=== PATIENT | female | born 1960 | race Two or more races ===

== ENCOUNTER 2024-06-30 21:06 | Inpatient (IN) | payer MEDICAID, SELFPAY ==
[2024-06-30 21:07] VITALS: BMI 43.4
--- NOTE | 2024-06-30 21:08 | EKG_ITS ---
[facility] Test Date: 2024-06-30 Pat Name: JENNIFER STRATTON Department: Room: - Gender: Female Field Service Rep: : 1960 Requested By: Davonte Caceres Order Number: [id number] Reading MD: Davonte Caceres Measurements Intervals [place] Rate: 72 P: 40 MN: 148 QRS: 116 QRSD: 134 T: 47 QT: 422 QTc: 463 Interpretive Statements SINUS RHYTHM MARKED RIGHT AXIS DEVIATION [QRS AXIS > 100] RIGHT BUNDLE BRANCH BLOCK [120+ ms QRS DURATION, UPRIGHT V1, 40+ ms S IN I/aVL/V4/V5/V6] No previous ECG available for comparison /store/S0/[id number].pdf
[2024-06-30 21:14] VITALS: BP 163/69; PULSE 79; RESP 18; TEMP 36.6; O2SAT 92
--- NOTE | 2024-06-30 21:36 | XR_ITS ---
Examination: PA chest single view Technique: Upright PA chest single view Exam date and time: June 30, 2024 2147 hrs. Indications: Coughing shortness of breath beginning one week ago. Findings: Significant bilateral perihilar bibasilar pneumonia Normal heart size Impression: Significant bilateral pneumonia
--- NOTE | 2024-06-30 21:37 | PD.EDRME ---
Rapid Medical Screening Exam RME Arrival date/time: 06/30/24 21:06 63F with history of asthma (though she smokes cigarettes) and DM presents to ED with 1 week of worsening cough and SOB. Chief Complaint: Asthma Time Seen by Provider: 06/30/24 21:42 Vital signs: Vital Signs Temperature 97.8 F 06/30/24 21:14 Pulse Rate 79 06/30/24 21:14 Respiratory Rate 18 06/30/24 21:14 Blood Pressure 163/69 H 06/30/24 21:14 Pulse Oximetry (%) 92 L 06/30/24 21:14 Oxygen Delivery Method Room Air 06/30/24 21:14
--- NOTE | 2024-06-30 21:45 | EDNOTE_ITS ---
ED SOB =RME/HPI General Chief Complaint: Asthma Stated Complaint: DIFFICULTY BREATING; HX ASTHMA Time Seen by Provider: 06/30/24 21:42 Arrival date/time: 06/30/24 21:06 RME / HPI RME / HPI Narrative: 06/30/24 21:06 63F with history of asthma (though she smokes cigarettes) and DM presents to ED with 1 week of worsening cough and SOB. This section includes all my notes and documentations, including HPI, PE, and ED course. Omar Pringle MD HPI: 63-year-old female with asthma presents with about a week history of worsening cough, productive cough, purulent sputum, and dyspnea. With subjective fever and chills. No other complaints. ROS: All negative except as documented in HPI. Physical Exam: General: Alert and oriented. Hypoxia noted needing oxygen. Eyes: Conjunctivae and lids clear. ENT: No nasal congestion. Pharynx normal. TM normal bilaterally. Neck: Supple. Heart: RRR. Lungs: Severe respiratory distress. Severely decreased air movement with diffuse wheezing and bibasilar Rales. Abdomen: Soft and nontender. Normal bowel sounds. No distension. No rebound or guarding. Back: No CVA tenderness. Skin: Warm and dry. Neuro: Alert and oriented X 3. I reviewed all diagnostic test results. My interpretation of the EKG is sinus rhythm with nonspecific ST-T changes. My interpretation of the chest x-ray is infiltrates. Blood tests remarkable for negative troponin/D-dimer/BNP. At this point, diagnoses include respiratory failure with hypoxia, pneumonia, and asthma exacerbation. Treatment here included dexamethasone and neb treatments and Zithromax and Rocephin and two Tylenol #3. Significant improvement not noted. I discussed the case with our hospitalist. About the presentation and exam and diagnostics and treatments here. And need of further care in the hospital. Abel barros accept the patient. Omar Pringle MD Related Data Previous Rx's ?Medication ?Instructions ?Recorded gabapentin 300 mg capsule 300 mg PO BID #20 caps 10/07/19 ibuprofen 800 mg tablet 800 mg PO TID #30 tabs 10/07/19 Allergies Allergy/AdvReac Type Severity Reaction Status Date / Time No Known Allergies Allergy Verified 10/07/19 19:52 Course Quality Measures none Orders Category Date Time Status Bedside COVID-19 Antigen Test NOW Care 06/30/24 22:12 Active Bedside COVID-19 Antigen Test NOW Care 07/01/24 00:23 Active Bedside Influenza A&B Antigen Test NOW Care 06/30/24 21:37 Completed COVID-19 Screening Questionnaire NOW Care 07/01/24 00:17 Active Decision to Admit X1 Care 07/01/24 00:17 Active EKG (ED ONLY) *Do not use* NOW Care 06/30/24 21:08 Completed Saline [Insert IV] NOW Care 06/30/24 22:23 Active EKG (ED Only) Stat Exams 06/30/24 21:08 Draft XR chest 1V portable Stat Exams 06/30/24 21:36 Completed BNP [B-Type Natriuretic Peptide] Stat Lab 06/30/24 22:22 Completed Blood Culture (Lab) Stat Lab 06/30/24 22:22 Received CBC Stat Lab 06/30/24 22:22 Completed Comprehensive Metabolic Panel Stat Lab 06/30/24 22:22 Completed D-Dimer Stat Lab 06/30/24 22:22 Completed Lactate (Lactic Acid) Stat Lab 06/30/24 22:22 Completed Magnesium Stat Lab 06/30/24 22:22 Completed Procalcitonin Stat Lab 06/30/24 22:22 Completed RSV [Respiratory Syncytial Virus Ag] Stat Lab 06/30/24 22:12 Ordered Troponin I Stat Lab 06/30/24 22:22 Completed ACETAMINOPHEN w/COD 300-30 [Tylenol w/Cod #3] Med 06/30/24 22:12 Discontinued 2 tab PO X1 ONE Azithromycin Inj [Zithromax Inj] 500 mg Med 06/30/24 22:23 Discontinued Sodium Chloride 0.9% 250 ml [Ns] 250 ml IV X1 Budesonide Rt [Pulmicort Rt [place]] Med 06/30/24 21:36 Discontinued 0.5 mg INH X1 ONE Dexamethasone Inj [Decadron Inj] Med 06/30/24 21:36 Discontinued 10 mg PO X1 ONE Ipratropium [place] Rt [place]ham [Atrovent Rt [place]] Med 06/30/24 21:36 Discontinued 1 mg INH X1 ONE Levalbuterol Rt [Xopenex Rt [place]] Med 06/30/24 21:36 Discontinued 5 mg INH X1 ONE Sodium Chloride Rt [place] 0.9% [NS Rt [place] 0.9%] Med 06/30/24 21:36 Active 3 ml INH PRN PRN cefTRIAXone/D5w 1gm IV premix [Rocephin/D5w 1gm IV Med 06/30/24 22:23 Discontinued premix] 50 ml IV X1 Oxygen Delivery NOW RT 06/30/24 21:36 Active Vital Signs Vital signs: Vital Signs Temperature 97.8 F 06/30/24 21:14 Pulse Rate 79 06/30/24 21:14 Respiratory Rate 18 06/30/24 21:14 Blood Pressure 163/69 H 06/30/24 21:14 Pulse Oximetry (%) 92 L 06/30/24 21:14 Oxygen Delivery Method Room Air 06/30/24 21:14 Shortness of Breath / Dyspnea Patient data External records reviewed:: [facility] previous records Clinical information provided by:: patient and family Social determinants that could affect healthcare access:: none Patient has the following chronic illnesses:: Asthma How is presenting disease/condition affected by chronic disease/condition?: exacerbated by Evaluation data The following diagnostics were reviewed and interpreted by me:: lab results, radiology exam(s) and EKG tracing(s) (My interpretation of the EKG is: Sinus rhythm (72 bpm) with right BBB and nonspecific ST-T changes. Omar Pringle MD) Lab and/or radiology exams considered but not ordered:: None Interpretation Summary: Respiratory failure and pneumonia and asthma exacerbation Medications / Prescriptions Medications or Prescriptions considered but not ordered:: None Medication administrations:: Medication Administration History Sodium Chloride (Sodium Chloride Rt [place] 0.9% 3 Ml Nebu) 3 ml INH PRN PRN PRN Reason: SOLN Stop: 07/30/24 21:35 Last Admin: 06/30/24 22:11 Dose: 3 ml Documented By: EMMA Discontinued Medications Acetaminophen/Codeine Phosphate (Acetaminophen W/Cod 300-30 Tablet) 2 tab PO X1 ONE Stop: 06/30/24 22:13 Last Admin: 06/30/24 22:24 Dose: 2 tab Documented By: AVI Budesonide (Budesonide Rt 0.5 Mg/2 Ml Nebu) 0.5 mg INH X1 ONE Stop: 06/30/24 21:37 Last Admin: 06/30/24 22:11 Dose: 0.5 mg Documented By: EMMA Dexamethasone Sodium Phosphate (Dexamethasone Sod Phos Inj 10 Mg/Ml Vial) 10 mg PO X1 ONE Stop: 06/30/24 21:37 Last Admin: 06/30/24 21:52 Dose: 10 mg Documented By: Azithromycin 500 mg/ Sodium (Chloride) 250 mls @ 250 mls/hr IV X1 ONE Stop: 06/30/24 23:22 Last Admin: 07/01/24 00:18 Dose: 250 mls/hr Documented By: WARREN Ceftriaxone Sodium/Dextrose (Rocephin/D5w 1gm Iv Premix) 50 mls @ 100 mls/hr IV X1 ONE Stop: 06/30/24 22:52 Last Admin: 06/30/24 23:11 Dose: 100 mls/hr Documented By: SWATI Ipratropium [place] (Ipratropium Rt 0.5 Mg/ 2.5 Ml Nebu) 1 mg INH X1 ONE Stop: 06/30/24 21:37 Last Admin: 06/30/24 22:10 Dose: 1 mg Documented By: EMMA Levalbuterol HCl (Levalbuterol Rt 1.25 Mg/0.5 Ml Nebu) 5 mg INH X1 ONE Stop: 06/30/24 21:37 Last Admin: 06/30/24 22:10 Dose: 5 mg Documented By: EMMA Dexamethasone and neb treatments and Rocephin and Zithromax Consultations Consultation(s) initiated? (list below): No Diagnosis Shortness of Breath Differential Diagnosis: acute exacerbation of chronic obstructive airways disease, congestive heart failure, community acquired pneumonia, asthma with exacerbation and pulmonary embolism Most likely diagnosis given after review of the tests above:: Respiratory failure and pneumonia and asthma exacerbation Admission Indicated Admission indicated?: indicated Explain why admission is indicated or not indicated:: Respiratory failure with hypoxia Admission Request Was there a request for admission?: Yes Admission Attestation Admission request attestation: Discussed case with [] from Hospitalist service regarding admission. Discussed patients ED course, exam findings, labs, and radiology results. The Hospitalist [agrees,declines] to accept the patient for admission. Disposition Plan Disposition Plan: Admit Discharge Plan Plan Patient Disposition: Admit Acute Care w/in Hospital Prescriptions/Referrals Prescriptions/Med Rec: No Action ibuprofen 800 mg tablet 800 mg PO TID Qty: 30 0RF gabapentin 300 mg capsule 300 mg PO BID Qty: 20 0RF Referrals: Edmar Espinal MD [Primary Care Provider] - In 1 week Problem List Clinical Impression: Acute respiratory failure with hypoxia, Asthma with acute exacerbation, Pneumonia Patient/Caregiver Discharge Instructions Print Language: Kittitian Stand Alone Forms: Mary Award Info., Patient Portal Info Letter
[2024-06-30] MEDS: DEXAMETHASONE SOD PHOS INJ 10 MG/ML VIAL PO (21:52)
[2024-06-30] MEDS: LEVALBUTEROL RT 1.25 MG/0.5 ML NEBU 5 MG INH (22:10)
[2024-06-30] MEDS: IPRATROPIUM RT 0.5 MG/ 2.5 ML NEBU 1 MG INH (22:10)
[2024-06-30] MEDS: BUDESONIDE RT 0.5 MG/2 ML NEBU INH (22:11)
[2024-06-30] MEDS: SODIUM CHLORIDE RT SOL 0.9% 3 ML NEBU INH (22:11)
[2024-06-30 22:19] VITALS: PULSE 97; RESP 20; O2SAT 99
[2024-06-30] MEDS: ACETAMINOPHEN w/COD 300-30 TABLET 2 TAB PO (22:24)
[2024-06-30 22:34] LABS: Basophils % (Auto) 0 % (0-2.5); Eosinophils # (Auto) 0.1 Thou/mm3 (0.0-0.5); Eosinophils % (Auto) 1 % (0-10); Hematocrit 39.5 % (36.0-46.0); Hemoglobin 13.5 g/dL (12.0-16.0); Immature Granulocytes % (Auto) 1 % (0-0); Immature Granulocytes Auto 0.04 Thou/mm3 (0.00-0.00); Lactate (Lactic Acid) 1.7 mMol/L (0.4-2.0); Lymphocytes # (Auto) 3.1 Thou/mm3 (1.0-4.8); Lymphocytes % (Auto) 40 % (10-50); Mean Corpuscular HGB Conc 34.2 g/dl (31.0-37.0); Mean Corpuscular Hemoglobin 30.3 pg (25.0-35.0); Mean Corpuscular Volume 89 fL (80-100); Monocytes # (Auto) 0.6 Thou/mm3 (0.0-0.8); Monocytes % (Auto) 8 % (0-12); Neutrophils # (Auto) 3.9 Thou/mm3 (1.8-7.7); Neutrophils % (Auto) 50 % (37-80); Nucleated Red Blood Cell % 0 /100 WBC (0); Platelet Count 228 Thou/mm3 (140-440); RDW Standard Deviation 43.8 fL (36.4-46.3); Red Blood Count 4.46 Miln/mm3 (4.00-5.20); White Blood Count 7.8 Thou/mm3 (3.6-11.0)
[2024-06-30 22:55] LABS: B-Type Natriuretic Peptide 29 pg/mL (0-100)
[2024-06-30 23:05] LABS: Alanine Aminotransferase 33 U/L (10-49); Albumin/Globulin Ratio 1.4 (1.2-2.2); Alkaline Phosphatase 98 U/L (46-116); Anion Gap 9 (7-16); Aspartate Amino Transferase 43 U/L (0-34); BUN/Creatinine Ratio 11 Ratio (12-20); Bilirubin,Total 0.4 mg/dL (0.3-1.2); Blood Urea Nitrogen 9 mg/dL (9-23); Calcium 9.6 mg/dL (8.3-10.6); Calcium (Corrected) 9.6 mg/dL (8.5-10.1); Carbon Dioxide 27.2 mMol/L (20.0-31.0); Chloride 103 mMol/L (98-107); Creatinine (Component) 0.8 mg/dL (0.6-1.3); Globulin 2.8 gm/dL (2.3-3.5); Glucose 116 mg/dL (74-106); Magnesium 1.9 mg/dL (1.6-2.6); Osmolality,Calculated 277 (275-295); Potassium 3.4 mMol/L (3.4-5.1); Procalcitonin 0.37 ng/ml (0.0-0.49); Sodium 139 mMol/L (136-145); Total Protein 6.8 gm/dL (5.7-8.2); Troponin I < 0.020 ng/mL (0.0-0.045); eGFR > 60 See Note
[2024-06-30] MEDS: cefTRIAXone/D5w 1gm IV premix 50 ML IV (23:11)
[2024-06-30 23:32] LABS: D-Dimer 414 ng/mL (<600)
--- NOTE | 2024-06-30 23:43 | PC.NURSE ---
Pt resting quietly with family at bedside. Pt appears in mild to moderate res distress. Pt sitting upright at side of bed. O2 [id number]% on RA. pt placed on O2 NC. sats 94-95 on 4L NC.
[2024-07-01] VITALS (14 sets, daily range): BP systolic 108–176; BP diastolic 67–88; PULSE 66–89; RESP 18–89; TEMP 36.4–36.8; O2SAT 91–100; BMI 97.4
[2024-07-01] MEDS: AZITHROMYCIN INJ 500 MG in SODIUM CHLORIDE 0.9% 250 ML 250 ML 250 MG IV (00:18)
--- NOTE | 2024-07-01 00:55 | PD.RESHP ---
Documentation for date of: 07/01/24 HPI History of Present Illness Chief complaint: Shortness of breath History of present illness: 63-year-old female with past medical history of COPD/asthma secondary to [id number] smoking history, lumbar radiculopathy, morbid obesity, hyperlipidemia, pta-yuhouwz-rkbppumjo type 2 diabetes, rheumatoid arthritis on sporadic ibuprofen presenting to the ED on 06/30 with worsening shortness of breath. Per patient, symptoms started on Saturday 06/23 with mild shortness of breath but have progressively worsened and she states that she has associated yellow phlegm production. Patient has ipratropium 17 mcg and Advair 500/50 that she uses sporadically when she feels short of breath and she has been using it since Friday without any improvement in her presenting symptoms. Of note, patient's sister who had visited her had felt sick but patient denies that her sister had any cough or sneezing or runny nose. Patient denies having any chest pain, palpitations, fever/chills, abdominal pain, nausea/vomiting, dysuria, hematuria, melena or hematochezia; however, she does state that she has had diarrhea since June 29, 2024 but denies being on outpatient oral antibiotics. When asked if she has night sweats patient states that she gets them all the time for the past several years but they also occur during the day and she attributed to menopause. Patient denies any travel and she has not been hiking or gardening recently. Medical history: As stated above Surgical history: Gallbladder removed 1979, tubal ligation 1991, left knee arthroplasty over 15 years ago, right fifth phalanx tendon repair Allergies: NKDA Medications: Patient is on ipratropium 17 mcg and Advair 500/50 along with metformin 500 mg p.o. 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 Fingerstick blood glucose of 207 and other pertinent labs include WBC 7.8, D-dimer 414 potassium 3.4, BUN 9, creatinine 0.8, lactic acid 1.7, magnesium 1.9, AST 43, ALT 33. EKG showed sinus rhythm with marked right axis deviation and right bundle branch block. Chest x-ray showed significant bilateral pneumonia mostly perihilar region. Patient will be admitted for COPD exacerbation with superimposed pneumonia acquired pneumonia and treated with IV antibiotics and breathing treatments. Exam Vital Signs Temp Pulse Resp BP Pulse Ox O2 Del Method O2 Flow Rate 97.8 F 85 22 H 163/69 H 95 Room Air 4 06/30/24 21:14 07/01/24 00:05 07/01/24 00:05 06/30/24 21:14 07/01/24 00:05 06/30/24 21:14 07/01/24 00:05 Narrative Exam Physical Exam: GENERAL: Awake, answering questions appropriately, morbidly obese, appears stated age HEENT: NC/AT. Moist mucosa. PERRLA/EOMI. CARDIO: Heart RRR, no obvious murmurs, no JVD. PULM: On 4 L nasal cannula, wheezing noted primarily on the left upper and lower lobes, no crackles rales or rhonchi auscultated, reduced lung sounds bilaterally GI: Abdomen soft, NT/ND, +BS. SKIN/MSK/EXT: No wounds/discoloration/rashes/edema/amputations noted. +Pedal pulses present B/L. NEURO: Oriented x 3, criminal court judge strength 5 out of 5, moves extremities x4, no focal neurologic deficits Results: Labs 06/30/24 22:22 06/30/24 22:22 Labs: Short CBC 06/30/24 Range/Units 22:22 WBC 7.8 (3.6-11.0) Thou/mm3 Hgb 13.5 (12.0-16.0) g/dL Hct 39.5 (36.0-46.0) % Plt Count 228 (140-440) Thou/mm3 BMP 06/30/24 22:22 Sodium 139 Potassium 3.4 Chloride 103 Carbon Dioxide 27.2 BUN 9 Creatinine 0.8 Glucose 116 H Calcium 9.6 Cardiac Enzymes 06/30/24 Range/Units 22:22 Troponin I < 0.020 (0.0-0.045) ng/mL Liver Function 06/30/24 Range/Units 22:22 Total Bilirubin 0.4 (0.3-1.2) mg/dL AST 43 H (0-34) U/L ALT 33 (10-49) U/L Alkaline Phosphatase 98 (46-116) U/L Albumin 4.0 (3.4-4.8) gm/dL Quality Measures Quality Measures none Medications Home Medications and Allergies Allergies Allergy/AdvReac Type Severity Reaction Status Date / Time No Known Allergies Allergy Verified 10/07/19 19:52 Visit Medications Acetaminophen (Acetaminophen 325 Mg Tablet) 650 mg PO Q6H PRN PRN Reason: Pain 1-3 and/or Fever >100.1 Stop: 07/31/24 00:47 Azithromycin (Azithromycin 250 Mg Tablet) 250 mg PO QDAY JULES Stop: 07/05/24 08:59 Dextrose (Dextrose 50%-Water Inj 50 Ml Syringe) 25 ml IV Q15MIN PRN PRN Reason: BG 50-70 responsive npo pt Stop: 07/31/24 00:47 Dextrose (Dextrose 50%-Water Inj 50 Ml Syringe) 50 ml IV Q15MIN PRN PRN Reason: BG <50 OR BG <70 & pt unresponsive Stop: 07/31/24 00:47 Glucagon (Glucagon Inj 1 Mg Vial) 1 mg IM Q15MIN PRN PRN Reason: BG <70, and no IV access Heparin Sodium (Porcine) (Heparin Sod Inj 5000 Unit/Ml Vial) 5,000 unit SC Q12HR [facility] Stop: 07/15/24 08:59 Insulin Human Lispro (Insulin Lispro (Admelog) 1 Unit/0.01 Ml Unit) 0 unit SC [facility]; Protocol Stop: 07/31/24 07:29 Levalbuterol HCl (Levalbuterol Rt 0.63 Mg/3 Ml Nebu) 0.63 mg INH Q8HR JULES Stop: 07/31/24 05:59 Ondansetron HCl (Ondansetron Inj 2 Mg/Ml Inj 2 Ml) 4 mg IV Q6H PRN; Protocol PRN Reason: NAUSEA OR VOMITING Stop: 07/31/24 00:47 Sennosides (Senna Tablet) 1 tab PO QDAY PRN; Protocol PRN Reason: constipation Stop: 07/31/24 00:47 Sodium Chloride (Sodium Chloride Rt [place] 0.9% 3 Ml Nebu) 3 ml INH PRN PRN PRN Reason: SOLN Stop: 07/30/24 21:35 Last Admin: 06/30/24 22:11 Dose: 3 ml Discontinued Medications Acetaminophen/Codeine Phosphate (Acetaminophen W/Cod 300-30 Tablet) 2 tab PO X1 ONE Stop: 06/30/24 22:13 Last Admin: 06/30/24 22:24 Dose: 2 tab Budesonide (Budesonide Rt 0.5 Mg/2 Ml Nebu) 0.5 mg INH X1 ONE Stop: 06/30/24 21:37 Last Admin: 06/30/24 22:11 Dose: 0.5 mg Dexamethasone Sodium Phosphate (Dexamethasone Sod Phos Inj 10 Mg/Ml Vial) 10 mg PO X1 ONE Stop: 06/30/24 21:37 Last Admin: 06/30/24 21:52 Dose: 10 mg Azithromycin 500 mg/ Sodium (Chloride) 250 mls @ 250 mls/hr IV X1 ONE Stop: 06/30/24 23:22 Last Admin: 07/01/24 00:18 Dose: 250 mls/hr Ceftriaxone Sodium/Dextrose (Rocephin/D5w 1gm Iv Premix) 50 mls @ 100 mls/hr IV X1 ONE Stop: 06/30/24 22:52 Last Admin: 06/30/24 23:11 Dose: 100 mls/hr Ipratropium [place] (Ipratropium Rt 0.5 Mg/ 2.5 Ml Nebu) 1 mg INH X1 ONE Stop: 06/30/24 21:37 Last Admin: 06/30/24 22:10 Dose: 1 mg Levalbuterol HCl (Levalbuterol Rt 1.25 Mg/0.5 Ml Nebu) 5 mg INH X1 ONE Stop: 06/30/24 21:37 Last Admin: 06/30/24 22:10 Dose: 5 mg Sodium Chloride (Sodium Chloride Rt 10% 15 Ml Nebu) 5 ml INH X1 ONE Stop: 07/01/24 00:49 Assessment & Plan Plan 63-year-old female with past medical history of COPD/asthma secondary to [id number]-htdm smoking history, lumbar radiculopathy, morbid obesity, hyperlipidemia, mrh-qrdnkay-cozvqddms type 2 diabetes, rheumatoid arthritis on sporadic ibuprofen presenting to the ED on 12/25 with worsening shortness of breath will be admitted for COPD exacerbation with superimposed pneumonia acquired pneumonia and treated with IV antibiotics and breathing treatments. 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 with PFTs done but not on file Patient is an active smoker with 30-nitf-ahhq history she attributes her asthma to her smoking status Patient presenting with shortness of breath which has been progressively worsening since Saturday 06/23 Patient does have a sick contact Presented to the ED requiring 4 L of oxygen which she normally does not use In the ED, patient was given dexamethasone, ipratropium, levalbuterol and budesonide along with x 1 ceftriaxone azithromycin Bedside COVID and influenza A and B are negative Plan: Will start patient on IV ceftriaxone and azithromycin regimen Sputum cultures RSV, cocci, Aspergillus, Legionella ordered Levalbuterol every 8hrs for wheezing Wean off oxygen Prednisone 40 mg p.o. daily for 4 days #Qgm-gtnvbme-yuuzcniga type 2 diabetes A1c from 2017 shows 6.6 Patient only takes metformin 500 mg p.o. daily Plan: Started sliding scale insulin Follow-up morning A1c #Hypertensive Patient states that in the past has been told she is hypertensive but she states it is whitecoat syndrome Usually on rechecks at office visits her blood pressure is better on second attempt Patient does not take any antihypertensives at home Plan: Monitor and consider starting antihypertensive if she remains hypertensive Ordered lipid panel, TSH, follow-up morning labs #Elevated liver enzymes Likely related to metabolic process and the patient's morbid obesity Plan: Followed outpatient Monitor morning labs #Tobacco dependence Patient has 86-epdl-gxwn smoking history as stated above Plan: Nicotine patch added Counseled on tobacco cessation #Rheumatoid arthritis #Morbid obesity #Lumbar radiculopathy #Hyperlipidemia Chronic medical conditions not pertinent for the following admission Patient does not take any medications for hyperlipidemia, takes ibuprofen sporadically for RA, longstanding lumbar radiculopathy Plan: Follow-up with PCP outpatient Hospital Management: Lines: PIV Diet: Carb consistent Bowel: Senna GI prophylaxis: Not needed DVT prophylaxis: Heparin subq Dispo: IV antibiotics and breathing treatment for COPD exacerbation and superimposed community-acquired pneumonia, pending workup Code: Full Patient seen and assessed with attending Dr. Rose and senior resident Dr. Lexie Barakat, PGY-1
[2024-07-01] MEDS: SODIUM CHLORIDE RT 10% 15 ML NEBU 5 ML INH (02:55)
--- NOTE | 2024-07-01 03:23 | PC.RT ---
No specimen collected from Sputum Induction at this time. Pt left with cup at bedside for specimen
[2024-07-01] MEDS: Magnesium Sulfate 2 GM Ivpb 2 GM/50 ML BAG IV (05:01)
[2024-07-01 05:17] LABS: Basophils % (Auto) 0 % (0-2.5); Eosinophils % (Auto) 0 % (0-10); Hematocrit 38.9 % (36.0-46.0); Hemoglobin 13.3 g/dL (12.0-16.0); Immature Granulocytes % (Auto) 1 % (0-0); Immature Granulocytes Auto 0.05 Thou/mm3 (0.00-0.00); Lymphocytes % (Auto) 13 % (10-50); Mean Corpuscular HGB Conc 34.2 g/dl (31.0-37.0); Mean Corpuscular Volume 88 fL (80-100); Monocytes # (Auto) 0.1 Thou/mm3 (0.0-0.8); Monocytes % (Auto) 1 % (0-12); Neutrophils # (Auto) 6.5 Thou/mm3 (1.8-7.7); Neutrophils % (Auto) 85 % (37-80); Nucleated Red Blood Cell % 0 /100 WBC (0); Platelet Count 190 Thou/mm3 (140-440); RDW Standard Deviation 43.2 fL (36.4-46.3); Red Blood Count 4.43 Miln/mm3 (4.00-5.20); White Blood Count 7.7 Thou/mm3 (3.6-11.0)
[2024-07-01 05:34] LABS: Alanine Aminotransferase 34 U/L (10-49); Albumin, Serum 4.3 gm/dL (3.4-4.8); Albumin/Globulin Ratio 1.6 (1.2-2.2); Alkaline Phosphatase 96 U/L (46-116); Anion Gap 10 (7-16); Aspartate Amino Transferase 41 U/L (0-34); BUN/Creatinine Ratio 16 Ratio (12-20); Bilirubin,Total 0.4 mg/dL (0.3-1.2); Blood Urea Nitrogen 11 mg/dL (9-23); Calcium 9.1 mg/dL (8.3-10.6); Calcium (Corrected) 9.1 mg/dL (8.5-10.1); Cardiac Risk Estimate 4.5 RATIO (3.7-5.6); Chloride 100 mMol/L (98-107); Cholesterol 118 mg/dL (132-200); Creatinine (Component) 0.7 mg/dL (0.6-1.3); Estimated Creatinine Clearance 90.2 mL/min (>60); Globulin 2.7 gm/dL (2.3-3.5); Glucose 216 mg/dL (74-106); HDL Cholesterol 26 mg/dL (40-60); LDL Cholesterol,Calculated 64 mg/dL (0-130); Magnesium 1.9 mg/dL (1.6-2.6); Osmolality,Calculated 278 (275-295); Phosphorous 3.1 mg/dL (2.4-5.1); Potassium 3.4 mMol/L (3.4-5.1); Sodium 136 mMol/L (136-145); Thyroid Stimulating Hormone 1.08 uIU/mL (0.55-4.78); Triglycerides 138 mg/dL (30-150); eGFR > 60 See Note
[2024-07-01 05:44] LABS: Glucose Estimated Average 143 mg/dL (80-131); Hemoglobin A1C 6.6 % Hgb (4.8-6.0)
--- NOTE | 2024-07-01 07:29 | PC.NURSE ---
pt resting upon assumption of care. pt on 4L nc denies any pain or discomfort at this time. vss, call matamoros in reach
[2024-07-01] MEDS: LEVALBUTEROL RT 0.63 MG/3 ML NEBU INH (07:55)
[2024-07-01] MEDS: predniSONE 20 MG TABLET 40 MG PO (08:12)
[2024-07-01] MEDS: HEPARIN SOD INJ 5000 UNIT/ML VIAL SC ×2 (08:13→21:45)
[2024-07-01] MEDS: AZITHROMYCIN 250 MG TABLET PO (08:13)
[2024-07-01] MEDS: INSULIN LISPRO (AdmeLOG) 1 UNIT/0.01 ML UNIT SC ×4 (08:13→21:40)
--- NOTE | 2024-07-01 10:02 | PC.CC ---
Patient is a 63 year-old female who presents to the hospital for COPD Exacerbation. Lisa YOUSIF made [id number] contact with patient. ASW introduced self, role, and reason for visit. Patient appeared alert and oriented to self, location, and situation. Patient was pleasant and engaged in initial assessment. Patient confirmed her information on demographics and reports living with her son Tiburcio Hilario. Prior to being admitted to the hospital the patient was able to ambulate independently and complete her own ADLs. Patient has a history of Asthma but does not use oxygen at home and stated that this is the first time she has had to use oxygen. Patient receives primary care with Edmar Espinal and uses [facility] for any prescription medication. Upon discharge the patient will be returning back to home. multicultural services librarian to follow up with any discharge needs.
[2024-07-01] MEDS: ALBUTEROL/IPRATROPIUM (Duoneb) RT SOL 3 ML NEBU INH ×2 (12:42→18:36)
--- NOTE | 2024-07-01 13:03 | ESPR_ITS ---
Documentation for date of: 07/01/24 ATTESTATION: I saw and examined the patient this morning, and I agree with current management stated by the resident. Will continue to monitor patient during their stay. Disclaimer: Despite multiple revisions, due to the dictation software being used, the document bellow may not be free of grammatical errors including phonetic/typographic errors. However, this does not deter from our commitment to providing health care in the patient's best interest in mind. Dr. Fernie Sarabia, PGY-3 Subjective Subjective Interval history: Patient seen in the ED, found awake, alert, orientedx3. States no active complaints at this time. Vital signs stable at this time. Labs unremarkable. Was counseled on the importance of smoking cessation, as patient is an active smoker with more than 50pk/year. Levalbuterol switched to Duonebs scheduled and prn, prednisone was switched to IV solumedrol 40mg BID. Will continue current management for pneumonia with ceftriaxone and azithromycin. Blood cultures pending and sputum culture pending at this time. Will continue to monitor. Exam Vital Signs Temp Pulse Resp BP Pulse Ox O2 Del Method O2 Flow Rate 97.8 F 81 20 108/77 100 Nasal Cannula 2 07/01/24 12:32 07/01/24 12:42 07/01/24 12:42 07/01/24 12:32 07/01/24 12:42 07/01/24 12:32 07/01/24 12:42 Narrative Exam Physical Exam GENERAL: NAD, AAOx3, morbidly obese HEENT: Moist mucosa. Eyes open, symmetrical, & clear CARDIO: Heart RRR, no obvious murmurs PULM: No noted coughing/dyspnea, b/l wheezing GI: Abdomen soft, nondistended, no pain on palpation. BSx4 SKIN/MSK/EXT: No wounds/rashes/edema/amputations, no pain on palpation. Pedal pulses present B/L NEURO: AAOx3, no focal neuro deficits, able to move all 4 extremities Objective Labs 07/02/24 05:15 07/02/24 05:15 Labs: Laboratory Results - last 24 hr 06/30/24 07/01/24 22:22 04:40 WBC 7.8 7.7 RBC 4.46 4.43 Hgb 13.5 13.3 Hct 39.5 38.9 MCV 89 88 MCH 30.3 30.0 MCHC 34.2 34.2 RDW Std Deviation 43.8 43.2 Plt Count 228 190 D Neut % (Auto) 50 85 H Lymph % (Auto) 40 13 [place] % (Auto) 8 1 Eos % (Auto) 1 0 Baso % (Auto) 0 0 Neut # (Auto) 3.9 6.5 Lymph # (Auto) 3.1 1.0 [place] # (Auto) 0.6 0.1 Eos # (Auto) 0.1 0.0 Baso # (Auto) 0.0 0.0 Immature Gran # (Auto) 0.04 H 0.05 H Absolute Nucleated RBC 0.00 0.00 Immature Gran % 1 H 1 H Nucleated RBC % 0 0 D-Dimer 414 Sodium 139 136 Potassium 3.4 3.4 Chloride 103 100 Carbon Dioxide 27.2 26.0 Anion Gap 9 10 BUN 9 11 Creatinine 0.8 0.7 Estim Creat Clear Calc 79.0 90.2 eGFR > 60 > 60 BUN/Creatinine Ratio 11 L 16 Glucose [address] Glu mg/dL 143 H Hemoglobin A1c 6.6 H Calculated Osmolality 277 278 Lactic Acid 1.7 Calcium 9.6 9.1 Corrected Calcium 9.6 9.1 Phosphorus 3.1 Magnesium 1.9 1.9 Total Bilirubin 0.4 0.4 AST 43 H 41 H ALT 33 34 Alkaline Phosphatase 98 96 Troponin I < 0.020 B-Natriuretic Peptide 29 Total Protein 6.8 7.0 Albumin 4.0 4.3 Globulin 2.8 2.7 Albumin/Globulin Ratio 1.4 1.6 Triglycerides 138 Cholesterol 118 L LDL Cholesterol, Calc 64 HDL Cholesterol 26 L Cholesterol/HDL Ratio 4.5 Procalcitonin 0.37 TSH 1.08 Quality Measures Quality Measures none Assessment & Plan Assessment Current Active Medications: Generic Name Dose Route Start Last Admin Trade Name Freq PRN Reason Stop Dose Admin Acetaminophen 650 mg 07/01/24 00:48 Acetaminophen 325 Mg Tablet PO 07/31/24 00:47 Q6H PRN Pain 1-3 and/or Fever >100.1 Albuterol/Ipratropium 3 ml 07/01/24 13:00 07/01/24 12:42 Albuterol/Ipratropium (Duoneb) Rt Elham 3 Ml Nebu INH 07/31/24 12:59 3 ml Q6HRRT JULES Administration Albuterol/Ipratropium 3 ml 07/01/24 10:58 Albuterol/Ipratropium (Duoneb) Rt [place]ham 3 Ml Nebu INH 07/31/24 10:59 Q4HRRT PRN shortness of breath Azithromycin 250 mg 07/01/24 09:00 07/01/24 08:13 Azithromycin 250 Mg Tablet PO 07/05/24 08:59 250 mg QDAY JULES Administration Dextrose 25 ml 07/01/24 00:48 Dextrose 50%-Water Inj 50 Ml Syringe IV 07/31/24 00:47 Q15MIN PRN BG 50-70 responsive npo pt Dextrose 50 ml 07/01/24 00:48 Dextrose 50%-Water Inj 50 Ml Syringe IV 07/31/24 00:47 Q15MIN PRN BG <50 OR BG <70 & pt unresponsive Glucagon 1 mg 07/01/24 00:48 Glucagon Inj 1 Mg Vial IM Q15MIN PRN BG <70, and no IV access Heparin Sodium (Porcine) 5,000 unit 07/01/24 09:00 07/01/24 08:13 Heparin Sod Inj 5000 Unit/Ml Vial SC 07/15/24 08:59 5,000 unit Q12HR JULES Administration Ceftriaxone Sodium/Dextrose 50 mls @ 100 mls/hr 07/01/24 21:00 Rocephin/D5w 1gm Iv Premix IV 07/08/24 20:59 HS [facility] Insulin Human Lispro 0 unit 07/01/24 07:30 07/01/24 12:30 Insulin Lispro (Admelog) 1 Unit/0.01 Ml Unit SC 07/31/24 07:29 4 unit ACHS [facility] Administration Protocol Nicotine 7 mg 07/01/24 09:00 07/01/24 09:49 Nicotine Patch 7 Mg/24 Hr Patch.Td24 TOP 07/31/24 08:59 Not Given QDAY [facility] Ondansetron HCl 4 mg 07/01/24 00:48 Ondansetron Inj 2 Mg/Ml Inj 2 Ml IV 07/31/24 00:47 Q6H PRN NAUSEA OR VOMITING Protocol Sennosides 1 tab 07/01/24 00:48 Senna Tablet PO 07/31/24 00:47 QDAY PRN constipation Protocol Sodium Chloride 3 ml 06/30/24 21:36 06/30/24 22:11 Sodium Chloride Rt Elham 0.9% 3 Ml Nebu INH 07/30/24 21:35 3 ml PRN PRN Administration SOLN Plan 63-year-old female with past medical history of COPD/asthma secondary to [id number] smoking history, lumbar radiculopathy, morbid obesity, hyperlipidemia, oxu-yikbwse-[id number] type 2 diabetes, rheumatoid arthritis on sporadic ibuprofen presenting to the ED on 06/30 with worsening shortness of breath will be admitted for COPD exacerbation with superimposed pneumonia acquired pneumonia and treated with IV antibiotics and breathing treatments. #Acute hypoxic respiratory failure secondary to #COPD exacerbation #Asthma #Community-acquired pneumonia Patient has been diagnosed with Asthma by a user interface developer with PFTs but not on file. Patient has 50 pk year smoking hx likely also superimposed COPD. Presented with SOB progressively worsening for a week In the ED, patient was given dexamethasone, ipratropium, levalbuterol and budesonide along with x 1 ceftriaxone azithromycin Bedside COVID and influenza A and B are negative - on IV ceftriaxone and azithromycin regimen - Sputum cultures pending - RSV, cocci, Aspergillus, Legionella ordered - on Duo nebs scheduled and prn - IV solumedrol 40mg BID #Ruc-ivttntt-odtikdsee type 2 diabetes A1c from 2017 shows 6.6 Patient only takes metformin 500 mg p.o. daily -SSI -hypoglycemia protocol in place #Hypertension Patient has SBP >170 Patient does not take any anti-hypertensive meds TSH nl lipid panel nl - started on losartan 25mg q day #Elevated liver enzymes Likely related to metabolic process and the patient's morbid obesity -Monitor labs #Tobacco dependence Patient has [id number]-[id number] smoking history as stated above - Nicotine patch added - Counseled on tobacco cessation #Rheumatoid arthritis #Morbid obesity #Lumbar radiculopathy #Hyperlipidemia Chronic medical conditions not pertinent for the following admission Patient does not take any medications for hyperlipidemia, takes ibuprofen sporadically for RA, longstanding lumbar radiculopathy - Follow-up with PCP outpatient Case discussed with my senior Dr. Sarabia PGY-[address] Diego Espinal MD PGY-1 Disposition: MedTele Fluids: None Feeding: Carb consistent Thrombo prophylaxis: Heparin Gastric Ulcer prophylaxis: Pantoprazole CODE STATUS: Full code Attending Provider Attestation/Addendum I have examined the patient, reviewed labs and imaging findings, discussed the case with the resident(s), and reviewed entered orders. I agree with the plan of care as outlined in this note, with these additional summaries/recommendations: Patient seen at bedside. Patient admitted overnight for acute hypoxic respiratory failure secondary to COPD/asthma exacerbation and community-acquired pneumonia. Continue supplemental oxygen and wean as tolerated. Continue IV antibiotics. RSV, cocci, Aspergillus, and Legionella ordered. Follow-up results when available. Continue breathing treatments, IV steroids, and home MDIs as tolerated. Counseled on smoking cessation. Start insulin sliding scale for diabetes mellitus type 2 which is well-controlled with A1c of 6.6%. Patient offered nicotine patch for chronic tobacco dependence although declined. Patient has history of rheumatoid arthritis and should follow-up with rheumatology outpatient. Repeat hematology and chemistry panel in AM. Dr. Cortez
[2024-07-01 13:46] LABS: Cocci Serology, IgM Negative (Negative)
--- NOTE | 2024-07-01 14:46 | PC.NURSE ---
transferred up to floor by this RN connected to tele, w/no incident. Staff at bedside for transfer of care.
[2024-07-01] MEDS: LOSARTAN POTASSIUM 25 MG TABLET PO (16:08)
--- NOTE | 2024-07-01 18:44 | PC.RT ---
Pt has been trying to produce sputum for collection, pt has a dry cough and is unable to produce. Pt has been instructed on sample collection and has a sterile cup bedside.
[2024-07-01] MEDS: ATORVASTATIN CALCIUM 20 MG TABLET 40 MG PO (21:30)
[2024-07-01] MEDS: cefTRIAXone/D5w 1gm IV premix 50 ML IV (21:32)
--- NOTE | 2024-07-01 21:52 | PC.NURSE ---
urine specimen for legionella sent to lab.
[2024-07-01 22:45] LABS: Respiratory Syncytial Virus Ag Negative (Negative)
[2024-07-02] VITALS (13 sets, daily range): BP systolic 125–159; BP diastolic 62–82; PULSE 53–81; RESP 14–22; TEMP 36.1–36.3; O2SAT 92–100
[2024-07-02] MEDS: ALBUTEROL/IPRATROPIUM (Duoneb) RT SOL 3 ML NEBU INH ×4 (00:47→19:13)
[2024-07-02 06:24] LABS: Prothrombin Time 11.2 Seconds (9.0-12.2)
[2024-07-02 06:49] LABS: Alanine Aminotransferase 36 U/L (10-49); Albumin, Serum 3.9 gm/dL (3.4-4.8); Albumin/Globulin Ratio 1.5 (1.2-2.2); Alkaline Phosphatase 81 U/L (46-116); Anion Gap 7 (7-16); Aspartate Amino Transferase 35 U/L (0-34); BUN/Creatinine Ratio 14 Ratio (12-20); Bilirubin,Total 0.4 mg/dL (0.3-1.2); Blood Urea Nitrogen 11 mg/dL (9-23); Calcium 9.4 mg/dL (8.3-10.6); Calcium (Corrected) 9.5 mg/dL (8.5-10.1); Carbon Dioxide 27.1 mMol/L (20.0-31.0); Chloride 102 mMol/L (98-107); Creatinine (Component) 0.8 mg/dL (0.6-1.3); Estimated Creatinine Clearance 137.1 mL/min (>60); Globulin 2.6 gm/dL (2.3-3.5); Glucose 143 mg/dL (74-106); Osmolality,Calculated 273 (275-295); Sodium 136 mMol/L (136-145); Total Protein 6.5 gm/dL (5.7-8.2); eGFR > 60 See Note
[2024-07-02 07:30] LABS: Basophils % (Auto) 0 % (0-2.5); Eosinophils % (Auto) 0 % (0-10); Hematocrit 38.3 % (36.0-46.0); Hemoglobin 12.7 g/dL (12.0-16.0); Immature Granulocytes % (Auto) 1 % (0-0); Immature Granulocytes Auto 0.11 Thou/mm3 (0.00-0.00); Lymphocytes # (Auto) 3.8 Thou/mm3 (1.0-4.8); Lymphocytes % (Auto) 23 % (10-50); Mean Corpuscular HGB Conc 33.2 g/dl (31.0-37.0); Mean Corpuscular Hemoglobin 30.2 pg (25.0-35.0); Mean Corpuscular Volume 91 fL (80-100); Monocytes # (Auto) 0.9 Thou/mm3 (0.0-0.8); Monocytes % (Auto) 6 % (0-12); Neutrophils # (Auto) 11.6 Thou/mm3 (1.8-7.7); Neutrophils % (Auto) 71 % (37-80); Nucleated Red Blood Cell % 0 /100 WBC (0); Platelet Count 217 Thou/mm3 (140-440); RDW Standard Deviation 44.8 fL (36.4-46.3); Red Blood Count 4.21 Miln/mm3 (4.00-5.20); White Blood Count 16.5 Thou/mm3 (3.6-11.0)
[2024-07-02] MEDS: LOSARTAN POTASSIUM 25 MG TABLET PO (08:55)
[2024-07-02] MEDS: AZITHROMYCIN 250 MG TABLET PO (08:55)
[2024-07-02] MEDS: INSULIN LISPRO (AdmeLOG) 1 UNIT/0.01 ML UNIT SC ×4 (08:56→21:21)
[2024-07-02] MEDS: HEPARIN SOD INJ 5000 UNIT/ML VIAL SC ×2 (08:56→21:21)
--- NOTE | 2024-07-02 09:02 | PC.SS ---
Follow up note: Wean off O2. Pt is receiving breathing treatments. Pt will return home upon dc.
[2024-07-02 14:29] LABS: Cocci Serology, IgG Negative (Negative)
--- NOTE | 2024-07-02 16:32 | ESPR_ITS ---
<Statement entered by Ajay Roy MD - 07/02/24 22:37> Patient was seen and examined at bedside. Today she was complaining only of excessive cough she was given Robitussin. She was saturating 98 on 2 L of oxygen for that reason we weaned the patient off the oxygen and she was saturating well 97% on room air. On auscultation we noted that the patient still wheezy for that reason we will continue the patient on another dose of steroid and continue the antibiotics. RSV and cocci came back negative, patient still getting DuoNebs. For hypertension patient is getting losartan 25 mg. Her blood culture is negative after 24 hours pending final culture results for discharge possibly tomorrow. - Patient's plan and care discussed with my attending, Dr. Diego Roy MD Internal Medicine PGY-2 Documentation for date of: 07/02/24 Subjective Subjective Interval history: Patient seen today at the bedside found awake, alert, orientedx3. No overnight events reported. States having a bad cough, when examined continues to have bilateral wheezing, however improved compared to previous examination. Vital signs stable at this time. Labs significant for uptrending WBCs. Blood cultures negative in 24 hours. Will continue current antibiotic therapy. Anticipate discharge in the next 24-48hours. Exam Vital Signs Temp Pulse Resp BP Pulse Ox O2 Del Method O2 Flow Rate 97.4 F 68 14 144/68 H 92 L Nasal Cannula 2 07/02/24 16:00 07/02/24 16:00 07/02/24 16:00 07/02/24 16:00 07/02/24 16:00 07/02/24 16:00 07/02/24 16:00 Narrative Exam Physical Exam GENERAL: NAD, AAOx3, morbidly obese HEENT: Moist mucosa. Eyes open, symmetrical, & clear CARDIO: Heart RRR, no obvious murmurs PULM: No noted coughing/dyspnea, b/l wheezing-improving GI: Abdomen soft, nondistended, no pain on palpation. BSx4 SKIN/MSK/EXT: No wounds/rashes/edema/amputations, no pain on palpation. Pedal pulses present B/L NEURO: AAOx3, no focal neuro deficits, able to move all 4 extremities Objective Labs 07/03/24 04:44 07/03/24 04:44 Labs: Laboratory Results - last 24 hr 07/01/24 07/01/24 07/02/24 04:40 16:41 05:15 WBC 16.5 H D RBC 4.21 Hgb 12.7 Hct 38.3 MCV 91 MCH 30.2 MCHC 33.2 RDW Std Deviation 44.8 Plt Count 217 Neut % (Auto) 71 Lymph % (Auto) 23 [place] % (Auto) 6 Eos % (Auto) 0 Baso % (Auto) 0 Neut # (Auto) 11.6 H Lymph # (Auto) 3.8 [place] # (Auto) 0.9 H Eos # (Auto) 0.0 Baso # (Auto) 0.0 Immature Gran # (Auto) 0.11 H Absolute Nucleated RBC 0.00 Immature Gran % 1 H Nucleated RBC % 0 PT 11.2 INR 1.0 Sodium 136 Potassium 4.0 D Chloride 102 Carbon Dioxide 27.1 Anion Gap 7 BUN 11 Creatinine 0.8 Estim Creat Clear Calc 137.1 eGFR > 60 BUN/Creatinine Ratio 14 Glucose 143 H D Calculated Osmolality 273 L Calcium 9.4 Corrected Calcium 9.5 Total Bilirubin 0.4 AST 35 H ALT 36 Alkaline Phosphatase 81 Total Protein 6.5 Albumin 3.9 Globulin 2.6 Albumin/Globulin Ratio 1.5 Coccidioides IgG Ab Negative RSV Rapid Negative Quality Measures Quality Measures none Assessment & Plan Assessment Current Active Medications: Generic Name Dose Route Start Last Admin Trade Name Freq PRN Reason Stop Dose Admin Acetaminophen 650 mg 07/01/24 00:48 Acetaminophen 325 Mg Tablet PO 07/31/24 00:47 Q6H PRN Pain 1-3 and/or Fever >100.1 Albuterol/Ipratropium 3 ml 07/01/24 13:00 07/02/24 12:10 Albuterol/Ipratropium (Duoneb) Rt Elham 3 Ml Nebu INH 07/31/24 12:59 3 ml Q6HRRT JULES Administration Albuterol/Ipratropium 3 ml 07/01/24 10:58 Albuterol/Ipratropium (Duoneb) Rt [place]ham 3 Ml Nebu INH 07/31/24 10:59 Q4HRRT PRN shortness of breath Atorvastatin Calcium 40 mg 07/01/24 21:00 07/01/24 21:30 Atorvastatin Calcium 20 Mg Tablet PO 07/31/24 20:59 40 mg HS JULES Administration Azithromycin 250 mg 07/01/24 09:00 07/02/24 08:55 Azithromycin 250 Mg Tablet PO 07/05/24 08:59 250 mg QDAY JULES Administration Dextrose 25 ml 07/01/24 00:48 Dextrose 50%-Water Inj 50 Ml Syringe IV 07/31/24 00:47 Q15MIN PRN BG 50-70 responsive npo pt Dextrose 50 ml 07/01/24 00:48 Dextrose 50%-Water Inj 50 Ml Syringe IV 07/31/24 00:47 Q15MIN PRN BG <50 OR BG <70 & pt unresponsive Glucagon 1 mg 07/01/24 00:48 Glucagon Inj 1 Mg Vial IM Q15MIN PRN BG <70, and no IV access Heparin Sodium (Porcine) 5,000 unit 07/01/24 09:00 07/02/24 08:56 Heparin Sod Inj 5000 Unit/Ml Vial SC 07/15/24 08:59 5,000 unit Q12HR JULES Administration Ceftriaxone Sodium/Dextrose 50 mls @ 100 mls/hr 07/01/24 21:00 07/01/24 21:32 Rocephin/D5w 1gm Iv Premix IV 07/08/24 20:59 100 mls/hr HS JULES Administration Insulin Human Lispro 0 unit 07/01/24 07:30 07/02/24 12:53 Insulin Lispro (Admelog) 1 Unit/0.01 Ml Unit SC 07/31/24 07:29 4 unit ACHS JULES Administration Protocol Losartan Potassium 25 mg 07/01/24 15:00 07/02/24 08:55 Losartan Potassium 25 Mg Tablet PO 07/31/24 14:59 25 mg QDAY JULES Administration Methylprednisolone Sodium Succinate 40 mg 07/03/24 09:00 Methylprednisolone Sod Succ 40 Mg Vial IVP 07/03/24 09:01 X1 ONE Nicotine 7 mg 07/01/24 09:00 07/02/24 11:31 Nicotine Patch 7 Mg/24 Hr Patch.Td24 TOP 07/31/24 08:59 Not Given QDAY JULES Ondansetron HCl 4 mg 07/01/24 00:48 Ondansetron Inj 2 Mg/Ml Inj 2 Ml IV 07/31/24 00:47 Q6H PRN NAUSEA OR VOMITING Protocol Sennosides 1 tab 07/01/24 00:48 Senna Tablet PO 07/31/24 00:47 QDAY PRN constipation Protocol Sodium Chloride 3 ml 06/30/24 21:36 06/30/24 22:11 Sodium Chloride Rt [place]ham 0.9% 3 Ml Nebu INH 07/30/24 21:35 3 ml PRN PRN Administration SOLN Plan 63-year-old female with past medical history of COPD/asthma secondary to [id number] smoking history, lumbar radiculopathy, morbid obesity, hyperlipidemia, utq-saibrfd-bijjhkarq type 2 diabetes, rheumatoid arthritis on sporadic ibuprofen presenting to the ED on 06/30 with worsening shortness of breath will be admitted for COPD exacerbation with superimposed pneumonia acquired pneumonia and treated with IV antibiotics and breathing treatments. #Acute hypoxic respiratory failure secondary to #COPD exacerbation #Asthma #Community-acquired pneumonia Patient has been diagnosed with Asthma by a medical management trainer with PFTs but not on file. Patient has 50 pk year smoking hx likely also superimposed COPD. Presented with SOB progressively worsening for a week In the ED, patient was given dexamethasone, ipratropium, levalbuterol and budesonide along with x 1 ceftriaxone azithromycin Bedside COVID and influenza A and B are negative Blood cultures negative in 24 hours RSV negative, Cocci negative - on IV ceftriaxone and azithromycin regimen - Sputum cultures pending - pending Aspergillus, Legionella - on Duo nebs scheduled and prn - IV solumedrol 40mg x1 #Ijz-ttardul-oyjnuwwnu type 2 diabetes A1c from 2017 shows 6.6 Patient only takes metformin 500 mg p.o. daily -SSI -hypoglycemia protocol in place #Hypertension Patient has SBP >170 Patient does not take any anti-hypertensive meds TSH nl lipid panel nl - on losartan 25mg q day #Elevated liver enzymes-improving Likely related to metabolic process and the patient's morbid obesity - will monitor at this time #Tobacco dependence Patient has [id number] smoking history as stated above - Nicotine patch added - Counseled on tobacco cessation #Rheumatoid arthritis #Morbid obesity #Lumbar radiculopathy #Hyperlipidemia Chronic medical conditions not pertinent for the following admission Patient does not take any medications for hyperlipidemia, takes ibuprofen sporadically for RA, longstanding lumbar radiculopathy - Follow-up with PCP outpatient Case discussed with my senior Dr. Moss PGY-[address] Diego Espinal MD PGY-1 Disposition: MedTele Fluids: None Feeding: Carb consistent Thrombo prophylaxis: Heparin Gastric Ulcer prophylaxis: Pantoprazole CODE STATUS: Full code Attending Provider Attestation/Addendum I have examined the patient, reviewed labs and imaging findings, discussed the case with the resident(s), and reviewed entered orders. I agree with the plan of care as outlined in this note, with these additional summaries/recommendations: Patient seen at bedside. No acute overnight events. Patient reports improvement in shortness of breath today although significant bilateral wheezing still present. Patient admitted for acute hypoxic respiratory failure secondary to COPD/asthma exacerbation and community-acquired pneumonia. Continue supplemental oxygen and wean as tolerated. Continue IV antibiotics. RSV, cocci, Aspergillus, and Legionella ordered. Follow-up results when available. Continue breathing treatments, IV steroids, and home MDIs as tolerated. Counseled on smoking cessation. Continue insulin sliding scale for diabetes mellitus type 2 which is well-controlled with A1c of 6.6%. Patient has history of rheumatoid arthritis and should follow-up with rheumatology outpatient. Repeat hematology and chemistry panel in AM. Dr. Cortez
[2024-07-02] MEDS: guaiFENesin SYRUP 200 MG/10 ML UDC 100 MG PO (16:48)
[2024-07-02] MEDS: ATORVASTATIN CALCIUM 20 MG TABLET 40 MG PO (21:21)
[2024-07-02] MEDS: cefTRIAXone/D5w 1gm IV premix 50 ML IV (21:21)
[2024-07-03] VITALS (8 sets, daily range): BP systolic 136–159; BP diastolic 65–74; PULSE 57–75; RESP 12–93; TEMP -12.4–36.7; O2SAT 93–100
[2024-07-03] MEDS: ALBUTEROL/IPRATROPIUM (Duoneb) RT SOL 3 ML NEBU INH ×2 (00:32→07:01)
[2024-07-03] MEDS: SODIUM CHLORIDE RT 10% 15 ML NEBU 5 ML INH (00:32)
[2024-07-03 05:49] LABS: Basophils % (Auto) 0 % (0-2.5); Eosinophils % (Auto) 0 % (0-10); Hematocrit 36.8 % (36.0-46.0); Hemoglobin 12.2 g/dL (12.0-16.0); Immature Granulocytes % (Auto) 1 % (0-0); Immature Granulocytes Auto 0.13 Thou/mm3 (0.00-0.00); Lymphocytes # (Auto) 4.6 Thou/mm3 (1.0-4.8); Lymphocytes % (Auto) 26 % (10-50); Mean Corpuscular HGB Conc 33.2 g/dl (31.0-37.0); Mean Corpuscular Volume 90 fL (80-100); Monocytes # (Auto) 1.2 Thou/mm3 (0.0-0.8); Monocytes % (Auto) 7 % (0-12); Neutrophils # (Auto) 12.1 Thou/mm3 (1.8-7.7); Neutrophils % (Auto) 67 % (37-80); Nucleated Red Blood Cell % 0 /100 WBC (0); Platelet Count 213 Thou/mm3 (140-440); RDW Standard Deviation 44.3 fL (36.4-46.3); Red Blood Count 4.07 Miln/mm3 (4.00-5.20); White Blood Count 18.1 Thou/mm3 (3.6-11.0)
[2024-07-03 06:07] LABS: Alanine Aminotransferase 41 U/L (10-49); Albumin, Serum 3.9 gm/dL (3.4-4.8); Albumin/Globulin Ratio 1.6 (1.2-2.2); Alkaline Phosphatase 87 U/L (46-116); Anion Gap 8 (7-16); Aspartate Amino Transferase 36 U/L (0-34); BUN/Creatinine Ratio 19 Ratio (12-20); Bilirubin,Total 0.3 mg/dL (0.3-1.2); Blood Urea Nitrogen 13 mg/dL (9-23); Calcium 9.1 mg/dL (8.3-10.6); Calcium (Corrected) 9.2 mg/dL (8.5-10.1); Carbon Dioxide 26.2 mMol/L (20.0-31.0); Chloride 102 mMol/L (98-107); Creatinine (Component) 0.7 mg/dL (0.6-1.3); Estimated Creatinine Clearance 91.7 mL/min (>60); Globulin 2.5 gm/dL (2.3-3.5); Glucose 139 mg/dL (74-106); Magnesium 2.2 mg/dL (1.6-2.6); Osmolality,Calculated 274 (275-295); Phosphorous 2.7 mg/dL (2.4-5.1); Potassium 3.5 mMol/L (3.4-5.1); Sodium 136 mMol/L (136-145); Total Protein 6.4 gm/dL (5.7-8.2); eGFR > 60 See Note
[2024-07-03] MEDS: AZITHROMYCIN 250 MG TABLET PO (09:09)
[2024-07-03] MEDS: HEPARIN SOD INJ 5000 UNIT/ML VIAL SC (09:09)
[2024-07-03] MEDS: LOSARTAN POTASSIUM 25 MG TABLET PO (09:09)
[2024-07-03] MEDS: guaiFENesin SYRUP 200 MG/10 ML UDC 100 MG PO (09:11)
--- NOTE | 2024-07-03 11:00 | PC.NURSE ---
pt's O2 sats are 95% on RA while mobile
--- NOTE | 2024-07-03 15:17 | PD.RESDS ---
Planned Discharge Date 07/03/24 DS: Providers Provider Date of admission: 07/01/24 00:48 Primary care physician: Edmar Espinal MD Admitting Provider: Alla Rose MD Attending Provider on Admission: Jourdan Cortez MD Consults: 07/01/24 15:13 [facility] Referral - Knowledge Deficit Routine Comment: Positive screening for knowledge deficit needs. Attending Provider on DC: Jourdan Cortez MD Discharging Provider: Ajay Roy MD DS: Diagnosis Problem List Completed Was Problem List Reviewed/Reconciled?: Yes Hospital Course Hospital Course Hospital course: A 63-year-old female patient with past medical history of COPD/asthma, history of 50 pack/year smoking history, morbid obesity, lumbar radiculopathy, hyperlipidemia, type 2 diabetes mellitus, rheumatoid arthritis presented to the ED on 30 June 2024 due to shortness of breath and wheezing. On evaluation patient was found to have blood pressure of 163/69, saturating 92% on 4 L of oxygen. Blood sugar was 207. D-dimer was 414, chest x-ray showed significant bilateral pneumonia. Patient was admitted to the hospital for acute hypoxic respiratory failure most likely secondary to COPD/asthma exacerbation with superimposed community-acquired bacterial pneumonia. Patient was treated with ceftriaxone and azithromycin in addition to steroid IV daily for 3 days and breathing treatment. Lab results was negative for RSV, cocci, and also blood culture was negative after 48 hours. Aspergillosis and Legionella are still pending. To be followed up by the primary care physician on discharge. Patient deemed to be clinically stable for discharge and was given the following instructions: Follow-up with the primary care physician within 1 week from discharge We noticed that you have high blood pressure for that reason we started you on losartan 25 mg/day Use medications as prescribed Avoid smoking In case of worsening of your symptoms please return to the ED as soon as possible Continue antibiotics for 6 more days Use prednisone 50 mg for 3 more days. Discharging diagnosis #Acute hypoxic respiratory failure #COPD/asthma exacerbation #Community-acquired pneumonia most likely bacterial #History of diabetes mellitus #History of hypertension #History of hyperlipidemia #History of morbid obesity #History of rheumatoid arthritis - Patient's plan and care discussed with my attending, Dr. Diego Roy MD Internal Medicine PGY-2 Time spent discussing smoking cessation with patient: more than 10 minutes Status at Discharge Functional status at discharge: independent ambulation Time Spent with Patient Time attestation: Total time spent providing and/or coordinating discharge services: Time spent: Greater than 30 minutes Exam Vital Signs Temp Pulse Resp BP Pulse Ox O2 Del Method O2 Flow Rate 9.6 F L 74 16 148/66 H 94 L Room Air 2 07/03/24 11:59 07/03/24 11:59 07/03/24 11:59 07/03/24 11:59 07/03/24 11:59 07/03/24 11:59 07/03/24 07:41 Narrative Exam GEN: AOx3, morbidly obese, eating breakfast comfortably. Able to speak full sentences HEENT: NC/AC, PERRLA, oral mucosa moist, neck supple CVS: RRR, S1-S2 present, no murmurs appreciated RESP: CTAB GI: soft,non distended, non tender, NBS MSK: able to move all 4 limbs, no lower extremity edema SKIN: warm and dry PROCESS ENGINEERING TECHNICIAN: CN II-XII and Sensation grossly intact. Discharge Plan Plan Patient Disposition: HOME (Self Care) Patient condition on transfer: Stable and Benefits outweigh risks Care Plan Goals: Follow-up with the primary care physician within 1 week from discharge We noticed that you have high blood pressure for that reason we started you on losartan 25 mg/day Use medications as prescribed Avoid smoking In case of worsening of your symptoms please return to the ED as soon as possible Continue antibiotics for 6 more days Use prednisone 50 mg for 3 more days. Prescriptions/Referrals Prescriptions/Med Rec: New guaifenesin 100 mg/5 mL Liquid 100 mg PO QID PRN (Reason: Cough) 6 Days Qty: 473 0RF losartan 25 mg Tablet 25 mg PO QDAY 15 Days Qty: 15 0RF amoxicillin-pot clavulanate 875-125 mg tablet 1 tab PO Q12H 6 Days Qty: 12 0RF prednisone 50 mg tablet 50 mg PO QDAY 3 Days Qty: 3 0RF Continued metformin 500 mg Tablet 500 mg PO QDAY fluticasone propion-salmeterol [Advair Diskus] 500-50 mcg/dose Blister With Device 1 inh INHALATION BID Atrovent HFA 17 mcg/actuation Hfa Aerosol Inhaler 1 puff INHALATION QID PRN (Reason: Shortness Of Breath Or Wheezing) Rx Instructions: 1 to 2 puffs prn Discontinued ibuprofen 800 mg tablet 800 mg PO TID PRN (Reason: Pain) Rx Instructions: 600mg to 800mg Referrals: Edmar Espinal MD [Primary Care Provider] - Patient/Caregiver Discharge Instructions Discharge Activity: activity as tolerated Education Materials: Chest and Lung Problems, Asthma and COPD Print Language: Chinese Stand Alone Forms: Mary Award Info., Patient Portal Info Letter Discharge Order Discharge Orders: Discharge (Routine); Ordered 07/03/24 Ordered By: Ajay Roy Quality Discharge Quality Measures VTE prophylaxis MD Attestestation MD Attestation I have examined the patient, reviewed labs and imaging findings, discussed the case with the resident(s), and reviewed entered orders. I agree with the plan of care as outlined in this note. Dr. Cortez
[2024-07-03 22:06] LABS: Index Value <0.50
[2024-07-05 06:27] LABS: Aspergillus Ag, Ser* NOT DETECTED
[2024-07-05 06:29] LABS: Legionella Ag, EIA, Urine* NOT DETECTED
== END 2024-07-03 12:25 | disposition home or self-care (01) | DRG 140 ==
LOC: SERX 07-01 00:18 → SERHOLD 07-01 01:04 → S3NX 07-01 14:33
PROVIDERS: Physician Assistant; Student in an Organized Health Care Education/Training Program; Admitting Provider Student in an Organized Health Care Education/Training Program; Emergency Provider Emergency Medicine; PCP Family Medicine; Visit Provider Student in an Organized Health Care Education/Training Program
DX: J44.1 Chronic obstructive pulmonary disease with (acute) exacerbation (principal); F17.200 Nicotine dependence, unspecified, uncomplicated; E78.5 Hyperlipidemia, unspecified; E66.01 Morbid (severe) obesity due to excess calories; Z68.41 Body mass index [BMI] 40.0-44.9, adult; J44.0 Chronic obstructive pulmonary disease with (acute) lower respiratory infection; E11.9 Type 2 diabetes mellitus without complications; M06.9 Rheumatoid arthritis, unspecified; J96.01 Acute respiratory failure with hypoxia; J18.9 Pneumonia, unspecified organism; Z79.84 Long term (current) use of oral hypoglycemic drugs; I10 Essential (primary) hypertension; R74.8 Abnormal levels of other serum enzymes; M54.16 Radiculopathy, lumbar region; Z71.6 Tobacco abuse counseling
CPT/HCPCS: 36415; 71045; 80053; 80061; 83036; 83605; 83735; 83880; 84100; 84145; 84443; 84484; 85025; 85379; 85610; 86331; 86635; 87040; 87205; 87305; 87400; 87449; 87634; 87811; 89220; 93225; 94640; 94644; 94664; 96365; 96366; 96372; 99285; A9270; J0456; J0696; J1100; J1643; J1815; J2919; J3475; J7050; J7512; J1644